=== PATIENT | female | born 1985 | race Caucasian/White ===

== ENCOUNTER 2017-12-25 06:47 | Emergency (ER) | payer OTHER ==
[2017-12-25] MEDS: IBUPROFEN 800 MG TAB PO (07:09)
== END 2017-12-25 07:51 | disposition home or self-care (01) ==
LOC: FTE 06:47
DX: J02.9 Acute pharyngitis, unspecified (principal); I10 Essential (primary) hypertension
CPT/HCPCS: 87430; 87880; 99283